=== PATIENT | male | born 1965 | race Caucasian/White ===

== ENCOUNTER 2021-12-05 09:52 | Emergency (ER) | payer MEDICAID ==
[~2021-12-05] VITALS: Ht 162.6 cm; Wt 89.8 kg
[2021-12-05 10:01] VITALS: BP 136/83
--- NOTE | 2021-12-05 10:17 | NUR ---
PT TAKEN TO ER BED 2 VIA W/C.
--- NOTE | 2021-12-05 10:20 | NUR ---
C/O FEVER, CHILLS , PUS FROM RIGHT THIGH INFECTED WOUND X 10 DAYS AND C/O COUGH X TODAY. PMH: DENIES
[2021-12-05] MEDS ORDERED: KETOROLAC 30 MG/ML VIAL IM ONE (10:40)
--- NOTE | 2021-12-05 10:54 | NUR ---
NEURORADIOLOGIST AT PT BEDSIDE.
[2021-12-05 11:29] LABS: BASOPHILS % (AUTO) 0.5 % (0.0-2.0); EOSINOPHILS % (AUTO) 0.2 % (0.0-4.0); HEMATOCRIT 39.7 % (36-52); HEMOGLOBIN 13.9 g/dL (12.0-18.0); LYMPHOCYTES # (AUTO) 0.9 K/uL (2.0-11.5); LYMPHOCYTES % (AUTO) 21.4 % (20.5-51.1); MEAN CORPUSCULAR HEMOGLOBIN 33 pg (27-31); MEAN CORPUSCULAR HGB CONC 35 g/dL (33-37); MEAN CORPUSCULAR VOLUME 93.1 fL (80-94); MONOCYTES # (AUTO) 0.3 K/uL (0.8-1.0); MONOCYTES % (AUTO) 7.2 % (1.7-9.3); NEUTROPHILS % (AUTO) 70.7 % (42.2-75.2); PLATELET COUNT (AUTO) 167 K/uL (140-450); RED BLOOD CELL COUNT(AUTO) 4.26 MIL/uL (4.20-6.10); RED CELL DISTRIBUTION WIDTH 13.7 % (11.6-13.7); WHITE BLOOD COUNT (AUTO) 4.3 K/uL (4.8-10.8)
[2021-12-05 11:39] LABS: ANION GAP 15.6 (8-16); CARBON DIOXIDE 25.2 mmol/L (21-32); CREATININE 0.8 mg/dL (0.6-1.3); POTASSIUM 3.8 mmol/L (3.5-5.1)
[2021-12-05] MEDS ORDERED: NAPR-54 PO (12:25)
[2021-12-05 12:35] VITALS: BP 125/75
== END 2021-12-05 12:35 | disposition home or self-care (01) ==
LOC: MED 09:52
DX: M79.604 Pain in right leg (principal); Z98.890 Other specified postprocedural states; Z79.1 Long term (current) use of non-steroidal anti-inflammatories (NSAID)
CPT/HCPCS: 36415; 80048; 85025; 96372; 99283; J1885

== ENCOUNTER 2021-12-07 12:06 | Emergency (ER) | payer MEDICAID ==
[~2021-12-07] VITALS: Ht 154.9 cm; Wt 87.1 kg
[~2021-12-07 12:06] MED LIST: NAPR-54 PO
[2021-12-07 12:17] VITALS: BP 152/74
--- NOTE | 2021-12-07 12:25 | NUR ---
Patient ambulated with cane to bed 12.
--- NOTE | 2021-12-07 12:28 | NUR ---
Dr. Macario is evaluating patient at bedside
--- NOTE | 2021-12-07 12:30 | NUR ---
56 y/o male c/o rt knee pain and fever 10-12 days. Pt A&Ox4 GCS 15, ambulated with cane states seen here for R knee pain on Tuesday. Pt reports 8/10, dull/intermittent, non-radiating pain to R knee. Pt also reports fever, chills, nausea. Denies chest pain, abdominal pain, vomiting, recent trauma/injury. Pt states hx fall 4 months ago and R knee fracture x 2. Denies meds prior to arrival. Pt noted with gauze wrap around R knee, no swelling, warmth, redness, drainage, bleeding noted to R knee. Bed locked in lowest position, side rails x 1. medhx: denies nka
[2021-12-07] MEDS ORDERED: KETOROLAC 60 MG/2 ML VIAL IM ONE (12:35)
[2021-12-07] MEDS ORDERED: IBUP-2213 PO (13:02)
[2021-12-07] MEDS ORDERED: ACET-8386 PO (13:02)
--- NOTE | 2021-12-07 13:25 | NUR ---
dcPatient discharged with v/s stable. Written and verbal after care instructions given and explained. Patient alert, oriented and verbalized understanding of instructions. Ambulatory with steady gait. All questions addressed prior to discharge. ID band removed. Patient advised to follow up with PMD. Rx of norco 5, ibuprofen given. Patient educated on indication of medication including possible reaction and side effects. Opportunity to ask questions provided and answered.
== END 2021-12-07 13:25 | disposition home or self-care (01) ==
LOC: MED 12:06
DX: M25.561 Pain in right knee (principal); R50.9 Fever, unspecified; R11.0 Nausea; Z79.899 Other long term (current) drug therapy
CPT/HCPCS: 96372; 99283; J1885